=== PATIENT | female | born 1950 | race Caucasian/White ===

== ENCOUNTER → 2017-07-03 | Outpatient (CLI) | payer MEDICARE ==
--- NOTE | 2017-07-03 14:33 | BD ---
EXAMINATION TYPE: MG DEXA axial skeleton. DATE OF EXAM: 07/03/2017 CLINICAL HISTORY: Height: 63.25 inches Weight: 154 FRAX RISK QUESTIONS: Alcohol (3 or more units per day): no Family History (Parent hip fracture): no Glucocorticoids (More than 3mos): no (Ex: prednisone, prednisolone, methylprednisolone, dexamethasone, and hydrocortisone). History of Fracture in Adulthood: no Secondary Osteoporosis: 1. Type 1 Diabetes: no 2. Hyperthyroidism: no 3. Menopause before 45: no 4. Malnutrition: no 5. Chronic liver disease: no Rheumatoid Arthritis: no Current Tobacco Use: no RISK FACTORS HISTORY OF: Family History of Osteoporosis: no Active: yes Diet low in dairy products/other sources of calcium: no Postmenopausal woman: yes Take estrogen and/or progesterone medications: no How long: no Lost more than 2 inches in height since high school: no Frequent falls: no Poor Health: no Hyperparathyroidism: no Adrenal Insufficiency: no MEDICATIONS: Prednisone or other steroids: no Thyroid Medications:no Osteoporosis Medications: no Additional Medications: blood pressure meds , multivitamin EXAM MEASUREMENTS: Bone mineral densitometry was performed using the [employer] System. Bone mineral density as measured about the Lumbar spine is: ----- L1-L4(G/cm2): 1.090 T Score Values are as follows: ----- L2: -0.8 ----- L3: -0.3 ----- L4: -1.1 ----- L1-L4: -0.8 Bone mineral density BASELINE Bone mineral density about the R hip (g/cm2): 0.777 Bone mineral density about the L hip (g/cm2): 0.840 T Score values are as follows: -----R Neck: -1.9 -----L Neck: -1.4 -----R Total: -2.0 -----L Total: -1.5 Bone mineral density BASELINE IMPRESSION: Osteopenia (T Score between -2.5 and -1) in both hips. There is slightly increased risk of fracture and the patient may be considered for treatment. Re-Screen 2-5 years. NOTE: T-SCORE=SD OF THE YOUNG ADULT MEAN.
--- NOTE | 2017-07-04 09:17 | MM ---
Reason for exam: screening (asymptomatic). Last mammogram was performed 1 year and 3 months ago. History: Patient is postmenopausal and has history of other cancer at age 64. Family history of breast cancer in cousin. Benign stereotactic core biopsy of the left breast, November 01, 2001. Benign excisional biopsy of the right breast. Physical Findings: A clinical breast exam by your physician is recommended on an annual basis and results should be correlated with mammographic findings. MG 3D Screening Mammo W/Cad Bilateral CC and MLO view(s) were taken. Prior study comparison: April 07, 2016, bilateral MG 3d screening mammo w/cad. March 12, 2015, bilateral MG screening mammo w CAD. The breast tissue is heterogeneously dense. This may lower the sensitivity of mammography. Benign calcifications in the left breast. Previous mammotome biopsy in the left breast There is chronic nodularity bilaterally. No significant changes when compared with prior studies. ASSESSMENT: Benign, BI-RAD 2 RECOMMENDATION: Routine screening mammogram of both breasts in 1 year.
== END | disposition home or self-care (01) ==
LOC: RADMAMWWP 12:51
PROVIDERS: ATTEND Internal Medicine
DX: Z12.31 Encounter for screening mammogram for malignant neoplasm of breast (principal); M85.852 Other specified disorders of bone density and structure, left thigh; M85.851 Other specified disorders of bone density and structure, right thigh; Z78.0 Asymptomatic menopausal state
CPT/HCPCS: 77063; 77067; 77080

== ENCOUNTER → 2017-08-07 | Outpatient (CLI) | payer MEDICARE ==
[2017-08-07 15:50] LABS: Calcium 10.3 mg/dL (8.4-10.2); Potassium 4.3 mmol/L (3.5-5.1)
== END | disposition home or self-care (01) ==
LOC: LABWHC1 14:58
PROVIDERS: ATTEND Internal Medicine Interventional Cardiology
DX: I10 Essential (primary) hypertension (principal)
CPT/HCPCS: 36415; 80048

== ENCOUNTER → 2018-04-19 | Outpatient (CLI) | payer MEDICARE ==
--- NOTE | 2018-04-19 14:04 | US ---
EXAMINATION TYPE: US kidneys/renal and bladder DATE OF EXAM: 04/19/2018 COMPARISON: NONE CLINICAL HISTORY: N18.3 Chronic kidney disease. CKD stage 3 EXAM MEASUREMENTS: Right Kidney: 9.1 x 3.9 x 4.9 cm Left Kidney: 10.7 x 5.1 x 5.1 cm Right Kidney: no hydronephrosis or masses seen Left Kidney: no hydronephrosis or masses seen Bladder: wnl Bilateral Jets seen: yes Gallbladder: cholelithiasis Liver: 1.7 x 1.5 x 2.0cm cyst right lobe There is no evidence for hydronephrosis at this point in time. No nephrolithiasis is seen. No pipo s are identified. The urinary bladder is anechoic. Bilateral ureteral jets are seen. IMPRESSION: 1. No distinct abnormality of the kidneys. 2. Cholelithiasis.
== END ==
LOC: RADUSWWP 13:23
PROVIDERS: ATTEND Internal Medicine
DX: K80.20 Calculus of gallbladder without cholecystitis without obstruction (principal); E78.5 Hyperlipidemia, unspecified; I12.9 Hypertensive chronic kidney disease with stage 1 through stage 4 chronic kidney disease, or unspecified chronic kidney disease
CPT/HCPCS: 76770

== ENCOUNTER → 2019-04-01 | Outpatient (CLI) | payer MEDICARE ==
--- NOTE | 2019-04-02 11:20 | MM ---
Reason for exam: screening (asymptomatic). Last mammogram was performed 1 year and 9 months ago. History: Patient is postmenopausal and has history of other cancer at age 64. Family history of breast cancer in cousin. Benign stereotactic core biopsy of the left breast, November 01, 2001. Benign excisional biopsy of the right breast. Physical Findings: A clinical breast exam by your physician is recommended on an annual basis and results should be correlated with mammographic findings. MG 3D Screening Mammo W/Cad Bilateral CC and MLO view(s) were taken. Prior study comparison: July 03, 2017, bilateral MG 3d screening mammo w/cad. April 07, 2016, bilateral MG 3d screening mammo w/cad. There are scattered fibroglandular densities. No significant changes when compared with prior studies. ASSESSMENT: Benign, BI-RAD 2 RECOMMENDATION: Routine screening mammogram of both breasts in 1 year.
== END | disposition home or self-care (01) ==
LOC: RADMAMWWP 13:14
PROVIDERS: ATTEND Internal Medicine
DX: Z12.31 Encounter for screening mammogram for malignant neoplasm of breast (principal)
CPT/HCPCS: 77063; 77067

== ENCOUNTER 2019-08-07 06:26 | Day surgery (SDC) | payer MEDICARE ==
[2019-08-06 11:47] VITALS: BMI 25.7
[2019-08-07 07:00] VITALS: RESP 16
[2019-08-07] MEDS ORDERED: LACTATED RINGERS 1,000 ML IV ONE ×2 (07:13→09:59)
[2019-08-07] MEDS ORDERED: MIDAZOLAM 2 MG/2 ML VIAL IV ONE (07:35)
[2019-08-07] MEDS ORDERED: DEXAMETHASONE SOD PHOSPHATE 10 MG/ML 1 ML VIAL IV ONE (07:37)
[2019-08-07] MEDS ORDERED: ONDANSETRON 4 MG/2 ML VIAL IVP ONE (07:37)
[2019-08-07] MEDS ORDERED: SUCCINYLCHOLINE CHLORIDE 100 MG/5 ML SYR IV ONE (08:19)
[2019-08-07] MEDS ORDERED: fentaNYL (PF) 50 MCG/ML 2 ML AMP ONE (08:19)
[2019-08-07] MEDS ORDERED: LIDOCAINE 2%-EPI 1:100,000 20 ML VIAL ONE (08:19)
[2019-08-07] MEDS ORDERED: PROPOFOL 10 MG/ML 20 ML VIAL IV ONE (08:19)
[2019-08-07] MEDS ORDERED: ePHEDrine SULFATE/0.9% NACL/PF 50 MG/5 ML SYRINGE IV ONE (08:19)
[2019-08-07] MEDS ORDERED: ROPIVACAINE 5 MG/ML 30 ML VIAL ONE (08:19)
[2019-08-07] MEDS ORDERED: MIDAZOLAM 2 MG/2 ML VIAL ONE (08:19)
[2019-08-07] MEDS ORDERED: LIDOCAINE 1% INJ 10MG/ML (20 ML MDV) ONE (08:19)
[2019-08-07] MEDS ORDERED: DEXAMETHASONE SOD PHOSPHATE 4 MG/ML 1 ML VIAL ONE (08:19)
--- NOTE | 2019-08-07 09:12 | P.ANPRN ---
Procedure Note - Anesthesia - Nerve Block Performed Left Adductor Canal Single Time Out Performed: Yes ([id number]) Date of Procedure: 08/07/19 Procedure Start Time: 07:53 Procedure Stop Time: 07:58 Location of Patient: PreOp Indication: Acute Post-Operative Pain, Dx/Pain Location (Left Ankle), Requested by Surgeon Specifically requested for management of pain by : Ghanshyam Gonzalez Sedation Type: Sedate with meaningful contact maintained Preparation: Sterile Prep Position: Supine Catheter: None Needle Types: Pajunk Needle Gauge: 21 Ultrasound used to visualize needle placement: Yes Ultrasound used to observe medication spread: Yes Injectate: Other (see comment) (0.5% Bupivacaine 20cc + 10 cc of 2% lidocaine and epinephrine) Blood Aspirated: No Pain Paresthesia on Injection Noted: No Resistance on Injection: Normal Image Stored and Saved: Yes Events: Uneventful and Well Tolerated Left Popliteal Time Out Performed: Yes (741) Date of Procedure: 08/07/19 Procedure Start Time: 07:42 Procedure Stop Time: 07:51 Location of Patient: PreOp Indication: Acute Post-Operative Pain, Dx/Pain Location (Left Ankle), Requested by Surgeon Sedation Type: Sedate with meaningful contact maintained Preparation: Sterile Prep Position: Right Lateral Catheter: None Needle Types: Pajunk Needle Gauge: 21 Ultrasound used to visualize needle placement: Yes Ultrasound used to observe medication spread: Yes Injectate: Other (see comment) (Bupivacaine 0.5% 10cc + 10cc of 2% lidocaine + epinephrine) Blood Aspirated: No Pain Paresthesia on Injection Noted: No Resistance on Injection: Normal Image Stored and Saved: Yes Events: Uneventful and Well Tolerated
--- NOTE | 2019-08-07 09:57 | P.OP ---
Date of Procedure: 08/07/19 Preoperative Diagnosis: 1. Unstable left bimalleolar ankle fracture Postoperative Diagnosis: 1. Unstable left bimalleolar ankle fracture 2. Osteopenia Procedure(s) Performed: 1. Open reduction and internal fixation of left bimalleolar ankle fracture 2. Syndesmotic fixation due to poor bone quality left ankle 3. Manual application of joint stress by physician for radiography, left ankle 4. Application of short leg splint by physician, left ankle Anesthesia: CARLOS, regional Surgeon: Ghanshyam Gonzalez Rotary Shear Operator #1: Go Delgadillo Estimated Blood Loss (ml): 10 IV fluids (ml): 300 Pathology: none sent Condition: stable Disposition: PACU Indications for Procedure: The patient is a very pleasant 68-year-old female who sustained an isolated left ankle fracture a week ago while on vacation. She was seen in the emergency department where closed reduction and splint was applied. She followed up in the office with me. Due to the unstable nature of her ankle fracture I recommended operative fixation. We discussed the potential risks and complications of surgery including but not limited to risk of anesthesia, infection, damage to blood vessels or nerves, nonunion, malunion, malreduction of the ankle mortise, symptomatically hardware, post rheumatic ankle arthritis, and inability to regain preinjury level of function, loss of fixation, DVT, PE, other medical complications, and possibly loss of life or limb. The patient voiced understanding that while these are the most common complications other less common complications are possible. She provided her verbal and written consent to go forward with surgery. Operative Findings: The patient had very poor bone quality Description of Procedure: The patient was identified in preoperative holding and the correct left ankle was marked with my initials. I reviewed the consent form with the patient and her daughter. All of their questions were answered. A block was given by anesthesia. The patient was then brought back to the operating room. She was positioned on the OR table where general anesthetic and preoperative antibiotics were given. A tourniquet was applied to the proximal aspect of the left leg. A bump was placed under the left buttock internally rotate the leg to neutral. A ramp was placed to facilitate imaging. The remaining extremities were padded. The left leg was then prepped and draped in the standard sterile fashion. Prior to starting surgery timeout was performed identifying the correct patient, operative extremity, and procedure. The patient's leg was then elevated, exsanguinated with an Esmarch bandage, and the tourniquet was inflated to 250 mmHg. I began by outlining a straight lateral incision to the distal fibula. Skin incision was made with a scalpel. Dissection was carried down carefully to the subcutaneous tissue with tenotomy scissors. The fascia over the peroneal muscles proximally and the periosteum distally was sharply incised taking care to not inadvertently damage the superficial peroneal nerve. The fracture site was exposed. There was a large butterfly fragment which was clamped with 2 [id number] reduction clamps. It was noted that the bone was very soft and began fracturing even with gentle compression using the [id number] reduction clamps. I then gently placed a single lag screw crossed the largest fracture fragments taking care to not be too aggressive with compression. A precontoured distal fibular locking plate was then centered over the fracture. Its position was verified with fluoroscopy. Nonlocking 3.5 mm screws were placed proximal to the fracture. Distally a nonlocking 3.5 mm screws placed to bring the plate down to bone and then the remaining distal cluster of holes were filled with locking 3.5 mm screws. The nonlocking 3.5 mm screw was exchanged for a locking screw. Attention was then turned medially. A longitudinal incision was made over the medial malleolus. Dissection was carried down carefully to the subcutaneous tissue. The fracture was identified. It was relatively small there is a small amount of comminution. I elected to place a single bicortical 3.5 mm screw. Due to the patient's poor bone quality I then placed a syndesmotic screw lateral to medial through the plate. Final fluoroscopic images were taken including a mortise view, a manual external rotation stress x-ray which showed no widening of the medial clear space, and a lateral. The wounds were thoroughly irrigated and closed in layers with 0 Vicryl for the deep fascial layer, 3-0 Monocryl for the subcu, and 3-0 nylon Allgower modification of the Donati stitch for the skin. I verified that all instrument, sponge, and sharp counts were correct. A sterile dressing consisting of Betadine soaked Adaptic, 4 x 4, and web roll was applied. The drapes were taken down and a well-padded bulky Maya splint was placed with the ankle in neutral. The patient was then awoken from her anesthetic, transferred from the OR table to a gurney, and brought to recovery having top procedure well. Go Delgadillo PA-C was required as a skilled assistant operations manager for patient positioning, surgical exposure, retraction, placement of hardware, and application of splint. Plan: The patient is to be strictly nonweightbearing on her left leg. She is to leave her splint on at all times. He is encouraged to ice and elevate. She'll be given discharge instructions and prescriptions for [place], Giovanna-Colace, and aspirin. She will follow-up in 2 weeks in the office for splint removal, nonweightbearing x-rays of the ankle, and likely placement into either a boot or cast. We will also check a vitamin D level while she is in the hospital due to her poor bone health.
--- NOTE | 2019-08-07 10:02 | FL ---
EXAMINATION TYPE: FL guidance operating room, XR ankle limited LT DATE OF EXAM: 08/07/2019 CLINICAL HISTORY: Left ankle fracture. TECHNIQUE: Fluoroscopy. COMPARISON: None. FINDINGS: Fluoroscopic guidance was provided during open reduction internal fixation procedure perfo rmed by Dr. Gonzalez. A total of 22 seconds of fluoroscopic time was utilized during the procedure a nd 5 spot intraoperative images are acquired. Images acquired show placement of a lateral fixating plate with additional fixating screw through obl ique fracture distal fibular diaphysis and single fixating screw through a displaced medial malleolus fracture. One screw transverses the distal tibia and fibula. Alignment is satisfactory after open re duction and internal fixation. IMPRESSION: As Above.
[2019-08-07] MEDS: HYDROmorphone 1 MG/ML 1 ML SYRINGE IVP ONE ×3 (10:13→10:33)
[2019-08-07 10:18] VITALS: TEMP 97.2
[2019-08-07 12:10] VITALS: BP 130/56; PULSE 72
== END 2019-08-07 12:48 | disposition home or self-care (01) ==
LOC: OR 06:26
PROVIDERS: ATTEND Orthopaedic Surgery
DX: S82.842A Displaced bimalleolar fracture of left lower leg, initial encounter for closed fracture (principal); M85.872 Other specified disorders of bone density and structure, left ankle and foot; I10 Essential (primary) hypertension; E78.5 Hyperlipidemia, unspecified; Z79.899 Other long term (current) drug therapy; Z97.3 Presence of spectacles and contact lenses; Z98.890 Other specified postprocedural states; Z87.891 Personal history of nicotine dependence; Z90.89 Acquired absence of other organs; Z82.49 Family history of ischemic heart disease and other diseases of the circulatory system; W01.0XXA Fall on same level from slipping, tripping and stumbling without subsequent striking against object, initial encounter
CPT/HCPCS: 27814; 93005; 64447; 64450; 76942; 84132; 82306; 73600; C1713; J2250; J1100 ×2; J0690; J2405; J2001; J3010; J1170; J2795; J0330; J2704; 64445

== ENCOUNTER → 2019-12-16 | Outpatient (CLI) | payer MEDICARE ==
--- NOTE | 2019-12-16 14:53 | BD ---
EXAMINATION TYPE: Axial Bone Density DATE OF EXAM: 12/16/2019 COMPARISON: NONE CLINICAL HISTORY: Height: 5 FT 3 1/2 IN Weight: 156 FRAX RISK QUESTIONS: Alcohol (3 or more units per day): NO Family History (Parent hip fracture): NO Glucocorticoids (More than 3mos): NO (Ex: prednisone, prednisolone, methylprednisolone, dexamethasone, and hydrocortisone). History of Fracture in Adulthood: YES Secondary Osteoporosis: 1. Type 1 Diabetes: NO 2. Hyperthyroidism: NO 3. Menopause before 45: NO 4. Malnutrition: NO 5. Chronic liver disease: NO Rheumatoid Arthritis: NO Current Tobacco Use: NO RISK FACTORS HISTORY OF: Family History of Osteoporosis: YES Active: YES Postmenopausal woman: LATE 50'S MEDICATIONS: Additional Medications: ATTENOLOL,AMLODIPINE BESYLATE, HYDROCHLOROTHIAZIDE Additional History: RECENT LEFT ANKLE FX TIBIA FX EXAM MEASUREMENTS: Bone mineral densitometry was performed using the [employer] System. Bone mineral density as measured about the Lumbar spine is: ----- L1-L4(G/cm2): 1.136 T Score Values are as follows: ----- L2: -0.4 ----- L3: -0.5 ----- L4: -0.8 ----- L1-L4: -0.4 Bone mineral density has: INCREASED 2.0 % since study of: 2018 Bone mineral density about the R hip (g/cm2): 0.754 Bone mineral density about the L hip (g/cm2): 0.802 T Score values are as follows: -----R Neck: -2.0 -----L Neck: -1.7 -----R Total: -2.0 -----L Total: -2.1 Bone mineral density has: DECREASED -5.2 % since study of: 2018 IMPRESSION: Osteopenia bilateral femora. NOTE: T-SCORE=SD OF THE YOUNG ADULT MEAN.
== END | disposition home or self-care (01) ==
LOC: RADBDWWP 10:26
PROVIDERS: ATTEND Internal Medicine
DX: M85.89 Other specified disorders of bone density and structure, multiple sites (principal); S82.842A Displaced bimalleolar fracture of left lower leg, initial encounter for closed fracture
CPT/HCPCS: 77080

== ENCOUNTER → 2020-05-28 | Outpatient (CLI) | payer MEDICARE ==
--- NOTE | 2020-05-31 09:33 | MM ---
Reason for exam: screening (asymptomatic). Last mammogram was performed 1 year and 2 months ago. History: Patient is postmenopausal and has history of other cancer at age 64. Family history of breast cancer in cousin. Benign stereotactic core biopsy of the left breast, November 01, 2001. Benign excisional biopsy of the right breast. Physical Findings: A clinical breast exam by your physician is recommended on an annual basis and results should be correlated with mammographic findings. MG 3D Screening Mammo W/Cad Bilateral CC and MLO view(s) were taken. Prior study comparison: April 01, 2019, bilateral MG 3d screening mammo w/cad. July 03, 2017, bilateral MG 3d screening mammo w/cad. The breast tissue is heterogeneously dense. This may lower the sensitivity of mammography. Previous mammotome biopsy in the left breast. There is chronic nodularity bilaterally. There is no discrete abnormality. ASSESSMENT: Benign, BI-RAD 2 RECOMMENDATION: Routine screening mammogram of both breasts in 1 year.
== END | disposition home or self-care (01) ==
LOC: RADMAMWWP 10:16
PROVIDERS: ATTEND Internal Medicine
DX: Z12.31 Encounter for screening mammogram for malignant neoplasm of breast (principal)
CPT/HCPCS: 77063; 77067

== ENCOUNTER → 2021-10-21 | Outpatient (CLI) | payer MEDICARE ==
--- NOTE | 2021-10-24 11:24 | MM ---
Reason for Exam: Screening (asymptomatic). Last mammogram was performed 1 year(s) and 5 month(s) ago. Patient History: Menarche at age 13. First Full-Term at age 26. Postmenopausal. Patient has history of breast feeding. Benign Excisional Biopsy on the right side. 11/01/2001, Benign Stereotactic Core Biopsy on the left side. Maternal cousin had breast cancer under age 50. Maternal cousin had breast cancer at or over age 50. Risk Values: Edith 5 year model risk: 2.9%. NCI Lifetime model risk: 8.3%. Prior Study Comparison: 07/03/2017 Bilateral Screening Mammogram, [facility]. 04/01/2019 Bilateral Screening Mammogram, [facility]. 05/28/2020 Bilateral Screening Mammogram, [facility]. Tissue Density: The breast tissue is heterogeneously dense. This may lower the sensitivity of mammography. Findings: Analyzed By CAD. There is no suspicious group of microcalcifications or new suspicious mass in either breast. A benign-appearing calcification. Surgical clip left breast. Stable chronic nodularity outer margin left breast unchanged from multiple prior exams. Additional 6 mm nodule upper margin left breast approximately 3.4 cm from nipple. Also is a 4 mm nodule within the central aspect of the right breast. Overall Assessment: Incomplete: need additional imaging evaluation, BI-RAD 0 Management: Special View Mammogram of both breasts. A clinical breast exam by your physician is recommended on an annual basis and results should be correlated with mammographic findings. Electronically signed and approved by: Contreras King M.D. Radiologis
== END | disposition home or self-care (01) ==
LOC: RADMAMWWP 15:01
PROVIDERS: ATTEND Internal Medicine
DX: Z12.31 Encounter for screening mammogram for malignant neoplasm of breast (principal); Z78.0 Asymptomatic menopausal state; Z80.3 Family history of malignant neoplasm of breast
CPT/HCPCS: 77063; 77067

== ENCOUNTER → 2021-10-27 | Outpatient (CLI) | payer MEDICARE ==
--- NOTE | 2021-10-27 14:52 | MM ---
Reason for Exam: Additional evaluation requested from prior study. Additional evaluation requested from abnormal screening. Last screening mammogram was performed less than 1 month ago. Patient History: Menarche at age 13. First Full-Term at age 26. Postmenopausal. Patient has history of breast feeding. Benign Excisional Biopsy on the right side. 11/01/2001, Benign Stereotactic Core Biopsy on the left side. Maternal cousin had breast cancer under age 50. Maternal cousin had breast cancer at or over age 50. Risk Values: Edith 5 year model risk: 2.9%. NCI Lifetime model risk: 7.9%. Prior Study Comparison: 04/07/2016 Bilateral Screening Mammogram, [facility]. 07/03/2017 Bilateral Screening Mammogram, [facility] 04/01/2019 Bilateral Screening Mammogram, [facility] 05/28/2020 Bilateral Screening Mammogram, [facility]. 10/21/2021 Bilateral MG 3D screening mammo w/cad, [facility]. Tissue Density: There are scattered fibroglandular densities. Findings: Analyzed By CAD. Mammogram Under compression, there appears to be dispersion of the density within the right breast. On the left mediolateral oblique compression there is a persistent 5 mm rounded density on the compression view 3 cm from the nipple likely at the 3:00 position. Ultrasound of this area is recommended.. Technique: Method: Targeted. Findings: The upper outer quadrant of the left breast, the axilla of the left breast and the retroareolar of the left breast were scanned. There is a 0.5 x 0.3 x 0.4 cm anechoic transcribed structure with posterior wall enhancement 3 cm from nipple estimated at the 12:00 position. This may be a cyst. Short-term follow-up can be performed. Overall Assessment: Probably benign, BI-RAD 3 Assessment: MG 3D work up w/cad [facility] - Bilateral: Probably benign, BI-RAD 3 - Left. US breast workup limited LT - Left: Probably benign, BI-RAD 3. Management: Diagnostic Mammogram of both breasts in 6 months. A clinical breast exam by your physician is recommended on an annual basis and results should be correlated with mammographic findings. Results were given to the patient verbally at the time of exam. Patient should continue monthly self breast exam. Electronically signed and approved by: Jose Elias Roberson D.O. Radiologis
== END | disposition home or self-care (01) ==
LOC: RADMAMWWP 09:38
PROVIDERS: ATTEND Internal Medicine
DX: R92.8 Other abnormal and inconclusive findings on diagnostic imaging of breast (principal); Z78.0 Asymptomatic menopausal state; Z80.3 Family history of malignant neoplasm of breast
CPT/HCPCS: 77066; 76642; G0279; 77062

== ENCOUNTER → 2022-05-18 | Outpatient (CLI) | payer MEDICARE ==
--- NOTE | 2022-05-18 15:09 | MM ---
Reason for Exam: Follow-up at short interval from prior study. Last screening mammogram was performed 6 month(s) ago. Patient History: Menarche at age 13. First Full-Term at age 26. Postmenopausal. Patient has history of breast feeding. Benign Excisional Biopsy on the right side. 11/01/2001, Benign Stereotactic Core Biopsy on the left side. Maternal cousin had breast cancer under age 50. Maternal cousin had breast cancer at or over age 50. Risk Values: Edith 5 year model risk: 2.9%. NCI Lifetime model risk: 7.9%. Prior Study Comparison: 04/04/2013 Bilateral Screening Mammogram, [facility]. 07/03/2017 Bilateral Screening Mammogram, [facility]. 04/01/2019 Bilateral Screening Mammogram, [facility]. 10/21/2021 Bilateral MG 3D screening mammo w/cad, [facility]. 10/27/2021 Bilateral MG 3D work up w/cad [facility], [facility]. Tissue Density: The breast tissue is heterogeneously dense. This may lower the sensitivity of mammography. Findings: Analyzed By CAD. Pattern appears symmetrical and stable. No persistent suspicious nodular density in the right breast. Left breast appears stable. Surgical marker is present. Overall Assessment: Benign, BI-RAD 2 Management: Screening Mammogram of both breasts in 6 months. A clinical breast exam by your physician is recommended on an annual basis and results should be correlated with mammographic findings. This exam should not preclude additional follow-up of suspicious palpable abnormalities. Results were given to the patient verbally at the time of exam. Electronically signed and approved by: Jose Elias Roberson D.O. Radiologis
== END | disposition home or self-care (01) ==
LOC: RADMAMWWP 14:15
PROVIDERS: ATTEND Family Medicine
DX: N60.02 Solitary cyst of left breast (principal); Z78.0 Asymptomatic menopausal state; Z80.3 Family history of malignant neoplasm of breast
CPT/HCPCS: 77066; G0279; 77062

== ENCOUNTER → 2022-12-20 | Outpatient (CLI) | payer MEDICARE ==
--- NOTE | 2022-12-21 22:46 | MM ---
Reason for Exam: Screening (asymptomatic). Last screening mammogram was performed 8 month(s) ago. Patient History: Menarche at age 13. First Full-Term at age 26. Postmenopausal. Patient has history of breast feeding. Benign Excisional Biopsy on the right side. 11/01/2001, Benign Stereotactic Core Biopsy on the left side. Maternal cousin had breast cancer under age 50. Maternal cousin had breast cancer at or over age 50. Risk Values: Edith 5 year model risk: 7.1%. NCI Lifetime model risk: 14.5%. Prior Study Comparison: 10/21/2021 Bilateral MG 3D screening mammo w/cad, [facility]. 10/27/2021 Bilateral MG 3D work up w/cad [facility], [facility]. 05/18/2022 Bilateral MG 3D diag mammo w/cad [facility], [facility]. Tissue Density: There are scattered fibroglandular densities. Findings: Analyzed By CAD. Chronic bilateral nodularity. Microclip anterior left breast from prior biopsy. There is no suspicious group of microcalcifications or new suspicious mass in either breast. Overall Assessment: Benign, BI-RAD 2 Management: Screening Mammogram of both breasts in 1 year. See note below in regards to patient's increased five-year Edith score. Patient should continue monthly self-breast exams. A clinical breast exam by your physician is recommended on an annual basis. This exam should not preclude additional follow-up of suspicious palpable abnormalities. Note on Edith scores and lifetime risk: 1. A Edith score greater than 3% is considered moderate risk. If this is the case, consider specialist referral to assess eligibility for a risk reducing agent. 2. If overall lifetime risk for the development of breast cancer is 20% or higher, the patient may qualify for future screening with alternating mammogram and breast MRI. Electronically signed and approved by: Klarissa Sotelo M.D. Radiologist
== END | disposition home or self-care (01) ==
LOC: RADMAMWWP 14:35
PROVIDERS: ATTEND Family Medicine
DX: Z12.31 Encounter for screening mammogram for malignant neoplasm of breast (principal); Z78.0 Asymptomatic menopausal state; Z80.3 Family history of malignant neoplasm of breast
CPT/HCPCS: 77063; 77067

== ENCOUNTER 2023-08-31 08:35 | Day surgery (SDC) | payer MEDICARE ==
[2023-08-29 12:22] VITALS: BMI 28.3
[2023-08-31] MEDS: LACTATED RINGERS 1,000 ML IV SCH (09:20)
[2023-08-31 09:27] VITALS: RESP 16; TEMP 98
[2023-08-31] MEDS ORDERED: PROPOFOL 10 MG/ML 20 ML VIAL IV ONE (09:50)
--- NOTE | 2023-08-31 10:08 | P.PCN ---
Date of Procedure: 08/31/23 Procedure(s) Performed: BRIEF HISTORY: Patient is a 72-year-old pleasant white female scheduled for an elective colonoscopy as a part of screening for colon cancer. PROCEDURE PERFORMED: Colonoscopy with snare polypectomy. PREOPERATIVE DIAGNOSIS: Screening for colon cancer IV sedation per Anesthesia. PROCEDURE: After informed consent was obtained, the patient, was brought into the endoscopy unit. IV sedation was administered by Anesthesia under continuous monitoring. Digital rectal examination was normal. Initially the Olympus CF-160 flexible video colonoscope was then inserted in the rectum, gradually advanced into the cecum without any difficulty. Careful examination was performed as the scope was gradually being withdrawn. Ileocecal valve and the appendiceal orifice were visualized and appeared normal. Prep was excellent. Mucosa of the cecum has a 1.2 cm polyp that was removed by snare polypectomy. Rest of the, ascending colon, transverse colon, descending colon, sigmoid colon, and rectum appeared normal. scattered sigmoid diverticulosis.Retroflexion was performed in the rectum and nsmall internal hemorrhoids were seen. The patient tolerated the procedure well. IMPRESSION: 1.2 cm cecal polyp status post snare polypectomy Scattered sigmoid diverticulosis Small internal hemorrhoids RECOMMENDATIONS: Findings of this examination were discussed with the patient as well as her family. She was advised to follow with the biopsy results. If the biopsy report adenoma she can have a repeat colonoscopy in 3 years.
[2023-08-31 10:50] VITALS: BP 133/80; PULSE 50
== END 2023-08-31 10:40 | disposition home or self-care (01) ==
LOC: ORWHC2ENDO 08:35
PROVIDERS: ATTEND Internal Medicine Gastroenterology
DX: Z12.11 Encounter for screening for malignant neoplasm of colon (principal); D12.0 Benign neoplasm of cecum; K57.30 Diverticulosis of large intestine without perforation or abscess without bleeding; K64.8 Other hemorrhoids; I10 Essential (primary) hypertension; E78.5 Hyperlipidemia, unspecified; Z79.899 Other long term (current) drug therapy; Z98.890 Other specified postprocedural states
CPT/HCPCS: 88305; 45385; J2704

== ENCOUNTER → 2024-01-01 | Outpatient (CLI) | payer MEDICARE ==
--- NOTE | 2024-01-23 21:56 | MM ---
Reason for Exam: Screening (asymptomatic). Last screening mammogram was performed 12 month(s) ago. Patient History: Menarche at age 13. First Full-Term at age 26. Postmenopausal. Patient has history of breast feeding. Benign Excisional Biopsy on the right side. 11/01/2001, Benign Stereotactic Core Biopsy on the left side. Maternal cousin had breast cancer under age 50. Maternal cousin had breast cancer at or over age 50. Risk Values: Edith 5 year model risk: 7.2%. NCI Lifetime model risk: 13.5%. Prior Study Comparison: 10/27/2021 Bilateral MG 3D work up w/cad [facility]FR[facility]O, [facility]. 05/18/2022 Bilateral MG 3D diag mammo w/cad [facility]O, [facility]. 12/20/2022 Bilateral MG 3D screening mammo w/cad, [facility]. Tissue Density: There are scattered areas of fibroglandular density. Findings: Analyzed By CAD. Chronic nodularity on both sides. Microclip left breast from prior biopsy. No significant change from prior exams. There is no suspicious group of microcalcifications or new suspicious mass in either breast. Overall Assessment: Benign, BI-RAD 2 Management: Screening Mammogram of both breasts in 1 year. See note below in regards to the patient's increased 5 year Edith score. Patient should continue monthly self-breast exams. A clinical breast exam by your physician is recommended on an annual basis. This exam should not preclude additional follow-up of suspicious palpable abnormalities. Note on Edith scores and lifetime risk: 1. A Edith score greater than 3% is considered moderate risk. If this is the case, consider specialist referral to assess eligibility for a risk reducing agent. 2. If overall lifetime risk for the development of breast cancer is 20% or higher, the patient may qualify for future screening with alternating mammogram and breast MRI. Electronically signed and approved by: Klarissa Sotelo M.D. Radiologist
== END | disposition home or self-care (01) ==
LOC: RADMAMWWP 12:00
PROVIDERS: ATTEND Family Medicine
DX: Z12.31 Encounter for screening mammogram for malignant neoplasm of breast
CPT/HCPCS: 77063; 77067